=== PATIENT | female | born 1950 | race Caucasian/White ===

== ENCOUNTER → 2016-03-28 | Outpatient (CLI) | payer OTHER ==
[~2016-03-28] MED LIST: ADVIN10/60 INH; ALBU1AER9 INH; LEVO88TA PO; MULT-506 PO
[2016-03-28 09:50] LABS: BLOOD UREA NITROGEN 22 mg/dl (7-18); BUN/CREATININE RATIO 24.4 (10-20); CALCIUM 9.2 mg/dl (8.5-10.1); CARBON DIOXIDE 25 mmol/L (21-32); CHLORIDE 108 mmol/L (98-107); GLUCOSE 95 mg/dl (70-99); POTASSIUM 3.9 mmol/L (3.5-5.1); SODIUM 143 mmol/L (136-145)
[2016-03-28 09:51] LABS: BASO % 0.3 %; BASO ABS # 0.01 K/uL (0-0.2); EOS % 6.5 %; HEMATOCRIT 37.9 % (37-47); LYMPH % 26.1 %; LYMPH ABS # 0.92 K/uL (1.2-3.4); MEAN CELL VOLUME 87.1 fL (80-100); MEAN CORPUSCULAR HEMOGLOBIN 29.7 pg (25-34); MEAN PLATELET VOLUME 11.2 fL (7.4-10.4); MONO % 11.9 %; NEUT % 55.2 %; PLATELET COUNT 202 K/uL (130-400); RED BLOOD COUNT 4.35 M/uL (4.2-5.4); WHITE BLOOD COUNT 3.53 K/uL (4.8-10.8)
[2016-03-28 10:36] LABS: COMPLETE YES
== END ==
LOC: C.LAB1850 08:35
PROVIDERS: ATTEND Internal Medicine
DX: R59.0 Localized enlarged lymph nodes (principal)

== ENCOUNTER → 2016-04-01 | Outpatient (CLI) | payer OTHER ==
[~2016-04-01] MED LIST changes: +OPTIRAY 320 IV PRN
--- NOTE | 2016-04-01 15:13 | DIAGNOSTIC IMAGING REPORT ---
CT HEAD WITHOUT CONTRAST (CT) CLINICAL HISTORY: Cervical lymphadenopathy. COMPARISON STUDY: 11/11/2005 TECHNIQUE: Axial CT of the brain is performed from the vertex to the skull base. IV contrast was not administered for this examination. CT DOSE: 720.95 mGycm FINDINGS: No intra or extra-axial mass lesions are visualized. There is no CT evidence of acute cortical infarction. There is no evidence of midline shift. There is no acute hemorrhage. No calvarial fractures are visualized. There are minimal white matter hypodensities likely on a small vessel basis. There is no evidence of pathologic ventricular dilatation. There is no evidence of acute sinusitis IMPRESSION: No acute intracranial findings Electronically signed by: Massimo Coles M.D. 04/01/2016 3:11 PM Dictated Date/Time: 04/01/2016 3:10 PM
--- NOTE | 2016-04-01 15:43 | DIAGNOSTIC IMAGING REPORT ---
CT NECK WITH INTRAVENOUS CONTRAST HISTORY: R59.0 Cervical [id number] TECHNIQUE: Head CT 04/01/2016. COMPARISON STUDY: None. FINDINGS: The visualized brain parenchyma and orbits are unremarkable. Moderate disc space narrowing at C6-C7. Prevertebral soft tissues and the epiglottis are normal in thickness. The parotid and submandibular glands enhance normally. The pterygopalatine fossa and paracentral fat spaces are maintained. The thyroid gland enhances normally. Mild biapical pleural scarring. No suspicious lytic or blastic osseous lesions. The paranasal sinuses and mastoid air cells are clear. The major mucosal airway surfaces are intact. No enlarged cervical lymph nodes. The major cervical vessels enhance normally. IMPRESSION: No cervical lymphadenopathy. Electronically signed by: Samson Colón M.D. 04/01/2016 3:42 PM Dictated Date/Time: 04/01/2016 3:32 PM
== END | disposition home or self-care (01) ==
LOC: C.CTS 14:22
PROVIDERS: ATTEND Internal Medicine
DX: R59.0 Localized enlarged lymph nodes (principal)

== ENCOUNTER → 2016-07-25 | Outpatient (CLI) | payer OTHER ==
[~2016-07-25] MED LIST changes: -OPTIRAY 320 IV PRN
[2016-07-25 09:45] LABS: BLOOD UREA NITROGEN 17 mg/dl (7-18); BUN/CREATININE RATIO 20.2 (10-20); CARBON DIOXIDE 27 mmol/L (21-32); CHLORIDE 108 mmol/L (98-107); CREATININE 0.86 mg/dl (0.60-1.20); GLUCOSE 80 mg/dl (70-99); POTASSIUM 3.8 mmol/L (3.5-5.1); SODIUM 142 mmol/L (136-145)
[2016-07-25 09:56] LABS: CHOLESTEROL 226 mg/dl (0-200); CHOLESTEROL/HDL RATIO 2.7; HDL CHOLESTEROL 83 mg/dl; LDL CHOLESTEROL CALCULATED 133 mg/dl; TRIGLYCERIDES 52 mg/dl (0-150); VERY LOW DENSITY LIPOPROT CALC 10 mg/dl
== END | disposition home or self-care (01) ==
LOC: C.LAB1850 08:05
PROVIDERS: ATTEND Internal Medicine
DX: M85.80 Other specified disorders of bone density and structure, unspecified site (principal); E03.9 Hypothyroidism, unspecified; E78.5 Hyperlipidemia, unspecified

== ENCOUNTER → 2016-09-19 | Outpatient (CLI) | payer OTHER ==
--- NOTE | 2016-09-19 15:31 | MAMMOGRAPHY REPORT ---
BILATERAL DIGITAL SCREENING MAMMOGRAM TOMOSYNTHESIS WITH CAD: 09/19/2016 CLINICAL HISTORY: Routine screening. Patient has no complaints. TECHNIQUE: Breast tomosynthesis in addition to standard 2D mammography was performed. Current study was also evaluated with a Computer Aided Detection (CAD) system. COMPARISON: Comparison is made to exams dated: 09/19/2015 mammogram, 11/07/2014 mammogram, 09/15/2014 ma mmogram, 04/30/2012 mammogram - [facility], 07/19/2008, and 11/07/2014 ultrasound - [facility]. BREAST COMPOSITION: The tissue of both breasts is heterogeneously dense, which may obscure small mas ses. FINDINGS: There is stable asymmetry in the superior posterior right breast on the MLO view, and a kristy ign coarse calcification in the left upper outer quadrant. No new suspicious mass, architectural dis tortion or cluster of microcalcifications is seen. IMPRESSION: ACR BI-RADS CATEGORY 1: NEGATIVE There is no mammographic evidence of malignancy. A 1 year screening mammogram is recommended. The pa tient will receive written notification of the results. Approximately 10% of breast cancers are not detected with mammography. A negative mammographic report should not delay biopsy if a clinically suggestive mass is present. Stella Soria M.D. ay/:09/19/2016 13:59:48 Scallop Cutter Machine: Deysi SCHULZ)(M), [facility] letter sent: Normal 1/2 BI-RADS Code: ACR BI-RADS Category 1: Negative
== END | disposition home or self-care (01) ==
LOC: C.MAMM 10:53
PROVIDERS: ATTEND Obstetrics & Gynecology
DX: Z12.31 Encounter for screening mammogram for malignant neoplasm of breast (principal)

== ENCOUNTER → 2017-01-20 | Outpatient (CLI) | payer OTHER ==
[2017-01-20 09:56] LABS: AST/SGOT 24 U/L (15-37); BLOOD UREA NITROGEN 18 mg/dl (7-18); CALCIUM 8.8 mg/dl (8.5-10.1); CARBON DIOXIDE 27 mmol/L (21-32); CHLORIDE 108 mmol/L (98-107); CREATININE 0.82 mg/dl (0.60-1.20); GLUCOSE 81 mg/dl (70-99); HDL CHOLESTEROL 92 mg/dl; POTASSIUM 3.7 mmol/L (3.5-5.1); SODIUM 141 mmol/L (136-145)
[2017-01-20 10:09] LABS: ALT/SGPT 30 U/L (12-78); CHOLESTEROL 206 mg/dl (0-200); CHOLESTEROL/HDL RATIO 2.2; LDL CHOLESTEROL CALCULATED 106 mg/dl; TRIGLYCERIDES 42 mg/dl (0-150); VERY LOW DENSITY LIPOPROT CALC 8 mg/dl
== END | disposition home or self-care (01) ==
LOC: C.LAB1850 08:06
PROVIDERS: ATTEND Internal Medicine
DX: E78.5 Hyperlipidemia, unspecified (principal); E03.9 Hypothyroidism, unspecified; G47.00 Insomnia, unspecified

== ENCOUNTER → 2017-09-24 | Outpatient (CLI) | payer OTHER ==
--- NOTE | 2017-09-24 16:00 | MAMMOGRAPHY REPORT ---
BILATERAL DIGITAL SCREENING MAMMOGRAM TOMOSYNTHESIS WITH CAD: 09/24/2017 TECHNIQUE: The study was acquired using full field digital technology and interpreted from soft copy. Breast tomosynthesis in addition to standard 2D mammography was performed. Current study was also ev aluated with a Computer Aided Detection (CAD) system. COMPARISON: Comparison is made to exams dated: 09/19/2016 mammogram, 09/19/2015 mammogram, 11/07/2014 ma mmogram, 09/15/2014 mammogram, 04/30/2012 mammogram - [facility], and 07/19/2008. BREAST COMPOSITION: The tissue of both breasts is heterogeneously dense, which may obscure small mass es. FINDINGS: No suspicious masses, calcifications, or areas of architectural distortion are noted in either breast . There has been no significant interval change compared to prior exams. IMPRESSION: ACR BI-RADS CATEGORY 1: NEGATIVE There is no mammographic evidence of malignancy. A 1 year screening mammogram is recommended.( 019) The patient will receive written notification of the results. Some breast cancers are not detected with mammography. A negative mammographic report should not viola y biopsy if a clinically suggestive mass is present. Livia Sahu M.D. ah/:09/24/2017 13:38:30 Rotary Swaging Machine Operator: RT Jose(Musa)(M), [facility] letter sent: Normal 1/2 BI-RADS Code: ACR BI-RADS Category 1: Negative
== END | disposition home or self-care (01) ==
LOC: C.MAMM 11:36
PROVIDERS: ATTEND Obstetrics & Gynecology
DX: Z12.31 Encounter for screening mammogram for malignant neoplasm of breast (principal)